=== PATIENT | male | born 1950 ===

== ENCOUNTER → 2020-08-22 | Outpatient (CLI) | payer MEDICARE ==
[~2020-08-22] MED LIST: ARTIFICIAL TEAR15 M2 RIGHTEYE; Methocarbamol500 MG PO; OXYC5 PO
== END | disposition home or self-care (01) ==
LOC: LAB SHORT 12:00 → LAB 12:00
DX: H16.001 Unspecified corneal ulcer, right eye (principal)
CPT/HCPCS: 87070; 87205

== ENCOUNTER 2020-08-23 12:32 | Day surgery (SDC) | payer MEDICARE ==
[2020-08-23] MEDS ORDERED: Methocarbamol500 MG PO (17:29)
[2020-08-23] MEDS ORDERED: ARTIFICIAL TEAR15 M2 RIGHTEYE (17:31)
[2020-08-23] MEDS ORDERED: OXYC5 PO (17:32)
--- NOTE | 2020-08-23 17:35 | NUR ---
EYE DROPS INSTILLED ORDERED, 5 MINUTES APART. REMAINING EYEDROPS SENT WITH PT, GIVEN TO [employer] SPECIALIST WHO SAID SHE WOULD GIVE THEM TO THE NURSE. INSTRUCTIONS WERE IN THE BAG WITH THE EYE DROPS.
== END 2020-08-23 14:45 | disposition home or self-care (01) ==
LOC: ATC 12:32
DX: H16.001 Unspecified corneal ulcer, right eye (principal); G51.0 Bell's palsy
CPT/HCPCS: 99211; A9270; J3260; J3370

== ENCOUNTER 2020-08-26 04:50 | Day surgery (SDC) | payer MEDICARE ==
--- NOTE | 2020-08-26 09:42 | NUR ---
PT IN VIA WC. ORIENTED TO NAME AND YEAR. EYE DROPS PLACED IN RIGHT EYE PER ORDERS. REPORT CALLED TO DIONNE SILVA AT [facility]. EYE DROPS SENT WITH PATIENT PER ORDERS.
== END 2020-08-26 09:26 | disposition home or self-care (01) ==
LOC: ATC 04:50
DX: H16.001 Unspecified corneal ulcer, right eye (principal); G51.0 Bell's palsy
CPT/HCPCS: 99211; A9270; J3260; J3370